=== PATIENT | female | born 1975 | race Caucasian/White ===

== ENCOUNTER 2017-09-08 05:55 | Inpatient (IN) | payer MEDICAID, OTHER ==
[~2017-09-08] VITALS: Ht 162.6 cm; Wt 58.6 kg
[~2017-09-08 05:55] MED LIST: SUBO8MIS SL; ZOFR4TAB3 SL
[2017-09-08 06:02] VITALS: BP 138/70; PULSE 74; RESP 18; TEMP 98.8; O2SAT 95
[2017-09-08] MEDS ORDERED: SODIUM CHLOR 0.9% 1000 ML INJ 1,000 ML IV SCH (06:27)
[2017-09-08] MEDS ORDERED: SODIUM CHLORIDE 0.9% FLUSH 10 ML FLUSH IV FLUSH PRN ×2 (06:30→09:30)
[2017-09-08] MEDS ORDERED: DIATRIZOATE MEGLUM/DIATRIZOATE SOD 9 ML CUP ONE (06:37)
[2017-09-08 06:40] LABS: AUTOMATED NEUTROPHIL # 11.9 TH/MM3 (1.8-7.7); BASOPHIL % 0.3 % (0.0-2.0); EOSINOPHIL % 0.3 % (0.0-4.0); HEMOGLOBIN 12.8 GM/DL (11.6-15.3); LYMPHOCYTE # 1.4 TH/MM3 (1.0-4.8); MEAN CELL VOLUME 83.9 FL (80.0-100.0); MEAN CORPUSCULAR HEMOGLOBIN 28.2 PG (27.0-34.0); MEAN CORPUSCULAR HGB CONC 33.6 % (32.0-36.0); MEAN PLATELET VOLUME 7.5 FL (7.0-11.0); MONO % 4.7 % (0.0-8.0); MONOCYTE # 0.7 TH/MM3 (0-0.9); NEUT % 84.7 % (16.0-70.0); PLATELET COUNT 354 TH/MM3 (150-450); RED BLOOD COUNT 4.53 MIL/MM3 (4.00-5.30); RED CELL DISTRIBUTION WIDTH 14.2 % (11.6-17.2)
[2017-09-08 06:44] LABS: BACTERIA, URINE RARE /hpf; BILIRUBIN, URINE NEG (NEG); BLOOD, URINE TRACE (NEG); GLUCOSE,URINE NEG (NEG); KETONE, URINE TRACE mg/dL (NEG); MUCUS URINE FEW /lpf (OCC); NITRITE,URINE NEG (NEG); PH, URINE 6.5 (5.0-8.5); SQUAMOUS EPITHELIAL CELL URINE 4 /hpf (0-5); URINE COLOR YELLOW (YELLW/STRAW); URINE LEUKOCYTE ESTERASE MOD (NEG)
[2017-09-08] MEDS ORDERED: BUPR8SUB SL (06:53)
[2017-09-08 06:59] LABS: ALT (GPT) 23 U/L (10-53); AST (GOT) 19 U/L (15-37); BICARBONATE 21.3 MEQ/L (21.0-32.0); BLOOD UREA NITROGEN 14 MG/DL (7-18); CALCIUM 9.2 MG/DL (8.5-10.1); CHLORIDE 106 MEQ/L (98-107); GLOMERULAR FILTRATION RATE 79 ML/MIN (>89); GLUCOSE,RANDOM 108 MG/DL (74-106); SODIUM (NA) 137 MEQ/L (136-145)
[2017-09-08 07:02] LABS: ALKALINE PHOSPHATASE 130 U/L (45-117); TOTAL BILIRUBIN ADULT 0.7 MG/DL (0.2-1.0); TOTAL PROTEIN 8.3 GM/DL (6.4-8.2)
--- NOTE | 2017-09-08 07:13 | PD ---
HPI Chief Complaint: Abdominal Pain Time Seen by Provider: 06:20 Travel History International Travel<30 days: No Contact w/Intl Traveler<30days: No Traveled to known affect area: No History of Present Illness HPI 42-year-old female complains of abdominal pain in the right side. She is wondering if it is a hernia or potentially a pulled muscle from doing fitness routines and exercises. She reports the pain started when she stepped off of a boat. It started somewhat suddenly. It has persisted over the night and is now constant. Patient reports pain is really only relieved when she lies down. No fever. No vomiting. No diarrhea. No urinary complaint vaginal bleeding or vaginal discharge. PFSH Past Medical History Medical History: Denies Significant Hx Diminished Hearing: No Tetanus Vaccination: < 5 Years Influenza Vaccination: No ?: Unknown LMP: 5 weeks ago, IUD out spotting now Past Surgical History Abdominal Surgery: Yes (hernia repairs with mesh) Other Surgery: Yes (BREAST AUGMENTATION) Social History Alcohol Use: No Tobacco Use: No Substance Use: No (HX OPIATE ABUSE) Allergies-Medications (Allergen,Severity, Reaction): Coded Allergies: penicillin G (Unverified Allergy, Unknown, 09/08/17) Reported Meds & Prescriptions Reported Meds & Active Scripts Active Zofran ODT (Ondansetron HCl) 4 Mg Tab 4 Mg SL Q6H PRN FOR NAUSEA/VOMITING Reported Buprenorphine (Buprenorphine HCl) 8 Mg Subl 8 Mg SL Suboxone 8 mg/2 mg 1 Tab Tab 1 Tab SL DAILY Review of Systems Except as stated in HPI: all other systems reviewed are Neg General / Constitutional: No: Fever Physical Exam Narrative GENERAL: 42-year-old female pleasant well-nourished well-developed Vital Signs Date Time Temp Pulse Resp B/P (MAP) Pulse Ox O2 Delivery O2 Flow Rate FiO2 09/08/17 06:28 Room Air 09/08/17 06:28 Room Air 09/08/17 06:02 98.8 74 18 138/70 (92) 95 SKIN: Warm and dry. HEAD: Atraumatic. Normocephalic. EYES: Pupils equal and round. No scleral icterus. No injection or drainage. ENT: No nasal bleeding or discharge. Mucous membranes pink and moist. NECK: Trachea midline. No JVD. CARDIOVASCULAR: Regular rate and rhythm. RESPIRATORY: No accessory muscle use. Clear to auscultation. Breath sounds equal bilaterally. GASTROINTESTINAL: Soft. There is tenderness in the right abdomen. There is no palpable hernia. There is no palpable abdominal wall defect. MUSCULOSKELETAL: Extremities without clubbing, cyanosis, or edema. No obvious deformities. NEUROLOGICAL: Awake and alert. No obvious cranial nerve deficits. Motor grossly within normal limits. Five out of 5 muscle strength in the arms and legs. Normal speech. PSYCHIATRIC: Appropriate mood and affect; insight and judgment normal. Data Data Last Documented VS Vital Signs Date Time Temp Pulse Resp B/P (MAP) Pulse Ox O2 Delivery O2 Flow Rate FiO2 09/08/17 06:28 Room Air 09/08/17 06:02 98.8 74 18 138/70 (92) 95 Orders Orders Complete Blood Count With Diff (09/08/17:24) Comprehensive Metabolic Panel (09/08/17:24) Urinalysis - C+S If Indicated (09/08/17:24) Ed Urine Pregnancytest Poc (09/08/17 06:24) Iv Access Insert/Monitor (09/08/17:24) Oxygen Administration (09/08/17 06:24) Oximetry (09/08/17 06:24) Lipase (09/08/17 06:24) Ct Abd/Pel W Iv Contrast(Rout) (09/08/17 06:27) NPO (09/08/17 06:27) Sodium Chlor 0.9% 1000 Ml Inj (Ns 1000 M (09/08/17 06:27) Sodium Chloride 0.9% Flush (Ns Flush) (09/08/17 06:30) Oral Contrast - Adult (09/08/17 06:35) Diatrizoate Liq ( Gastroview Liq) (09/08/17 06:37) Labs Laboratory Tests Test 09/08/17 06:30 White Blood Count 14.0 TH/MM3 Red Blood Count 4.53 MIL/MM3 Hemoglobin 12.8 GM/DL Hematocrit 38.0 % Mean Corpuscular Volume 83.9 FL Mean Corpuscular Hemoglobin 28.2 PG Mean Corpuscular Hemoglobin Concent 33.6 % Red Cell Distribution Width 14.2 % Platelet Count 354 TH/MM3 Mean Platelet Volume 7.5 FL Neutrophils (%) (Auto) 84.7 % Lymphocytes (%) (Auto) 10.0 % Monocytes (%) (Auto) 4.7 % Eosinophils (%) (Auto) 0.3 % Basophils (%) (Auto) 0.3 % Neutrophils # (Auto) 11.9 TH/MM3 Lymphocytes # (Auto) 1.4 TH/MM3 Monocytes # (Auto) 0.7 TH/MM3 Eosinophils # (Auto) 0.0 TH/MM3 Basophils # (Auto) 0.0 TH/MM3 CBC Comment DIFF FINAL Differential Comment Urine Color YELLOW Urine Turbidity CLEAR Urine pH 6.5 Urine Specific [place] 1.016 Urine Protein NEG mg/dL Urine Glucose (UA) NEG mg/dL Urine Ketones TRACE mg/dL Urine Occult Blood TRACE Urine Nitrite NEG Urine Bilirubin NEG Urine Urobilinogen LESS THAN 2.0 MG/DL Urine Leukocyte Esterase MOD Urine RBC 4 /hpf Urine WBC 8 /hpf Urine Squamous Epithelial Cells 4 /hpf Urine Bacteria RARE /hpf Urine Mucus FEW /lpf Microscopic Urinalysis Comment CULT NOT INDICATED Blood Urea Nitrogen 14 MG/DL Creatinine 0.80 MG/DL Random Glucose 108 MG/DL Total Protein 8.3 GM/DL Albumin 4.0 GM/DL Calcium Level 9.2 MG/DL Alkaline Phosphatase 130 U/L Aspartate Amino Transf (AST/SGOT) 19 U/L Alanine Aminotransferase (ALT/SGPT) 23 U/L Total Bilirubin 0.7 MG/DL Sodium Level 137 MEQ/L Potassium Level 4.0 MEQ/L Chloride Level 106 MEQ/L Carbon Dioxide Level 21.3 MEQ/L Anion Gap 10 MEQ/L Estimat Glomerular Filtration Rate 79 ML/MIN Lipase 68 U/L MDM Medical Decision Making Medical Screen Exam Complete: Yes Emergency Medical Condition: Yes Medical Record Reviewed: Yes Differential Diagnosis Constipation, Gastritis, Acute Cholecystitis, Biliary Colic, Pancreatitis, HLOLOWAY , Hepatitis, Bowel Obstruction, Cystitis, Mesenteric Ischemia, AAA, Appendicitis , Renal Stone/Hydronephrosis, GERD, perforated viscous Narrative Course CBC & BMP Diagram 09/08/17 06:30 Total Protein 8.3 H, Albumin 4.0, Calcium Level 9.2, Alkaline Phosphatase 130 H , Aspartate Amino Transf (AST/SGOT) 19, Alanine Aminotransferase (ALT/SGPT) 23, Total Bilirubin 0.7 Lipase normal Urinalysis is equivocal The patient has tenderness at McBurney's point. CT scan with IV and oral contrast ordered in order to rule it out. The case was discussed with Dr. Laguna and care was turned over to him at 7 AM. Duy Menard MD September 08, 2017 07:13
[2017-09-08 07:42] VITALS: BP 119/68; PULSE 91; RESP 18; O2SAT 99
[2017-09-08] MEDS ORDERED: IOHEXOL 350 MG/ML 10 ML VIAL (for RAD DIAG) IVCONTRAST ONE (08:30)
--- NOTE | 2017-09-08 08:58 | RADRPT ---
EXAM DATE/TIME: 09/08/2017 08:14 [facility] COMPARISON: No previous studies available for comparison. INDICATIONS : Right lower abdomen pain. IV CONTRAST: 80 cc Omnipaque 350 (iohexol) IV ORAL CONTRAST: Prescribed oral contrast ingested. RADIATION DOSE: 4.51 CTDIvol (mGy) MEDICAL HISTORY : None SURGICAL HISTORY : hernia repair ENCOUNTER: Initial ACUITY: 1 day PAIN SCALE: 8/10 LOCATION: Right lower quadrant TECHNIQUE: Volumetric scanning of the abdomen and pelvis was performed. Using automated exposure control and ad justment of the mA and/or kV according to patient size, radiation dose was kept as low as reasonably achievable to obtain optimal diagnostic quality images. DICOM format image data is available electro nically for review and comparison. FINDINGS: LOWER LUNGS: Mild bilateral dependent atelectasis. LIVER: Homogeneous density without lesion. There is no dilation of the biliary tree. No calcified gallston es. SPLEEN: Normal size without lesion. PANCREAS: Within normal limits. KIDNEYS: Normal in size and shape. There is no mass, stone or hydronephrosis. ADRENAL GLANDS: Within normal limits. VASCULAR: There is no aortic aneurysm. BOWEL/MESENTERY: There is an abnormal fluid and soft tissue collection identified adjacent to the cecum with a central punctate calcification concerning for an appendicolith. This area measures 4.6 x 5.0 x 4.5 cm. There is a large amount of formed stool identified out the colon. The small bowel is unremarkable. ABDOMINAL WALL: Within normal limits. RETROPERITONEUM: There is no lymphadenopathy. BLADDER: The bladder is extremely distended REPRODUCTIVE: Within normal limits. IUD identified the uterus. INGUINAL: There is no lymphadenopathy or hernia. MUSCULOSKELETAL: Within normal limits for patient age. CONCLUSION: Abnormal soft tissue and fluid collection identified within the right lower quadrant with a central c alcification concerning for an appendicolith within an inflammatory phlegmon/possible ruptured append icitis. Findings were relayed to Dr. Lonny Jamison MD on September 08, 2017 at 8:45 Board Certified Radiologist. This report was verified electronically.
--- NOTE | 2017-09-08 09:26 | PD ---
Physical Exam Date Seen by Provider: September 08, 2017 Time Seen by Provider: 07:00 Narrative I assume care of the patient at 7 AM at change of shift. Patient was seen initially by Dr. Menard. Please see his H&P for further details. Patient's 42-year-old female who presents with right lower quadrant abdominal pain. Patient states she felt a severe sudden burst in her right lower quadrant yesterday afternoon. Data Data Last Documented VS Vital Signs Date Time Temp Pulse Resp B/P (MAP) Pulse Ox O2 Delivery O2 Flow Rate FiO2 09/08/17 07:42 91 18 119/68 (85) 99 Room Air 09/08/17 06:02 98.8 Orders Orders Complete Blood Count With Diff (09/08/17:24) Comprehensive Metabolic Panel (09/08/17:24) Urinalysis - C+S If Indicated (09/08/17 06:24) Ed Urine Pregnancytest Poc (09/08/17 06:24) Iv Access Insert/Monitor (09/08/17 06:24) Oxygen Administration (09/08/17:24) Oximetry (09/08/17 06:24) Lipase (09/08/17 06:24) Ct Abd/Pel W Iv Contrast(Rout) (09/08/17 06:27) NPO (09/08/17 06:27) Sodium Chlor 0.9% 1000 Ml Inj (Ns 1000 M (09/08/17 06:27) Sodium Chloride 0.9% Flush (Ns Flush) (09/08/17 06:30) Oral Contrast - Adult (09/08/17 06:35) Diatrizoate Liq ( Gastroanushka Liq) (09/08/17 06:37) Iohexol 350 Inj (Omnipaque 350 Inj) (09/08/17 08:30) Metronidazole 500 Mg Inj (Flagyl 500 Mg (09/08/17 09:30) Levofloxacin 750 Mg Premix Inj (Levaquin (09/08/17 09:30) Labs Laboratory Tests Test 09/08/17 06:30 White Blood Count 14.0 TH/MM3 Red Blood Count 4.53 MIL/MM3 Hemoglobin 12.8 GM/DL Hematocrit 38.0 % Mean Corpuscular Volume 83.9 FL Mean Corpuscular Hemoglobin 28.2 PG Mean Corpuscular Hemoglobin Concent 33.6 % Red Cell Distribution Width 14.2 % Platelet Count 354 TH/MM3 Mean Platelet Volume 7.5 FL Neutrophils (%) (Auto) 84.7 % Lymphocytes (%) (Auto) 10.0 % Monocytes (%) (Auto) 4.7 % Eosinophils (%) (Auto) 0.3 % Basophils (%) (Auto) 0.3 % Neutrophils # (Auto) 11.9 TH/MM3 Lymphocytes # (Auto) 1.4 TH/MM3 Monocytes # (Auto) 0.7 TH/MM3 Eosinophils # (Auto) 0.0 TH/MM3 Basophils # (Auto) 0.0 TH/MM3 CBC Comment DIFF FINAL Differential Comment Urine Color YELLOW Urine Turbidity CLEAR Urine pH 6.5 Urine Specific [place] 1.016 Urine Protein NEG mg/dL Urine Glucose (UA) NEG mg/dL Urine Ketones TRACE mg/dL Urine Occult Blood TRACE Urine Nitrite NEG Urine Bilirubin NEG Urine Urobilinogen LESS THAN 2.0 MG/DL Urine Leukocyte Esterase MOD Urine RBC 4 /hpf Urine WBC 8 /hpf Urine Squamous Epithelial Cells 4 /hpf Urine Bacteria RARE /hpf Urine Mucus FEW /lpf Microscopic Urinalysis Comment CULT NOT INDICATED Blood Urea Nitrogen 14 MG/DL Creatinine 0.80 MG/DL Random Glucose 108 MG/DL Total Protein 8.3 GM/DL Albumin 4.0 GM/DL Calcium Level 9.2 MG/DL Alkaline Phosphatase 130 U/L Aspartate Amino Transf (AST/SGOT) 19 U/L Alanine Aminotransferase (ALT/SGPT) 23 U/L Total Bilirubin 0.7 MG/DL Sodium Level 137 MEQ/L Potassium Level 4.0 MEQ/L Chloride Level 106 MEQ/L Carbon Dioxide Level 21.3 MEQ/L Anion Gap 10 MEQ/L Estimat Glomerular Filtration Rate 79 ML/MIN Lipase 68 U/L [facility] Medical Record Reviewed: Yes Supervised Visit with DYLLAN: No Differential Diagnosis Appendicitis versus ovarian cyst versus ovarian torsion versus colitis Narrative Course 42-year-old female presents with right lower quadrant pain. Patient has a ruptured appendicitis on CT scan. Dr. Fahad Yancey, on-call surgeon, was made aware of the patient's presentation. He will arrange take the patient to the operating room. Patient's been started on Flagyl 500 mg 1 dose and Levaquin 750 mg 1 dose. She will be started on maintenance fluids. The patient was concerned that she may be receiving pain medication. The patient has a history of opiate dependence and has been on Subutex for over one year. I informed her that I would let the surgeon know of her concern. We will try to accommodate treating her pain in a in appropriate way. Diagnosis Primary Impression: Ruptured appendicitis Additional Impression: History of opiate dependence Admitting Information Admitting Physician Requests: Admit Colby Laguna MD September 08, 2017 09:26
[2017-09-08] MEDS ORDERED: metroNIDAZOLE 500 MG INJ 100 ML IV ONE (09:30)
[2017-09-08] MEDS ORDERED: LEVOFLOXACIN 750 MG PREMIX INJ 150 ML IV SCH (09:30)
[2017-09-08] MEDS ORDERED: D5-1/2 NS + KCL 20 MEQ INJ 1,000 ML IV SCH (09:30)
[2017-09-08] MEDS: LEVOFLOXACIN 500 MG PREMIX INJ 100 ML IV SCH (10:12)
[2017-09-08] MEDS: ACETAMINOPHEN 1000 MG/100 ML 100 ML IV SCH ×3 (10:15→22:07)
[2017-09-08] MEDS: SODIUM CHLOR 0.9% 1000 ML INJ 1,000 ML IV SCH ×2 (10:52→18:05)
[2017-09-08] MEDS: metroNIDAZOLE 500 MG INJ 100 ML IV SCH ×3 (10:53→22:30)
[2017-09-08 10:56] VITALS: BP 124/60; PULSE 85; RESP 17; TEMP 99.2; O2SAT 98
[2017-09-08 12:45] VITALS: BP 120/59; PULSE 64; RESP 20; TEMP 99.1; O2SAT 99
--- NOTE | 2017-09-08 13:34 | HHI.HP ---
HPI Service General Surgery Primary Care Physician Unknown Admission Diagnosis Appendicitis Chief Complaint: Abdominal pain History of Present Illness 42 yo healthy female presents with 6 days of right lower abdominal pain. Initially she thought that this was a muscle strain or a hernia as she is an avid athlete. The pain worsened and she presented to the emergency department early this morning. She was noted to have right lower quadrant tenderness and leukocytosis. CT of the abdomen and pelvis showed appendicitis with a small appendicolith and surrounding phlegmon. She denies nausea or vomiting although she does not have a large p.o. intake. No fevers. She has some pain when she urinates. Past surgical history includes umbilical hernia repair with mesh and inguinal hernia repair with mesh. Review of Systems Constitutional: DENIES: Fever, Chills Eyes: DENIES: Eye inflammation, Eye pain Ears, nose, mouth, throat: DENIES: Oral lesions, Throat pain Respiratory: DENIES: Cough, Shortness of breath Cardiovascular: DENIES: Chest pain, Palpitations Gastrointestinal: COMPLAINS OF: Abdominal pain, DENIES: Nausea, Vomiting Integumentary: DENIES: Pruritus, Rash Neurologic: DENIES: Paresthesias, Seizures Past Family Social History Past Medical History Opiate abuse in the past Past Surgical History Umbilical hernia repair with mesh Inguinal hernia repair with mesh Reported Medications Reported Meds & Active Scripts Active Reported Buprenorphine (Buprenorphine HCl) 8 Mg Subl 8 Mg SL Suboxone Allergies: Coded Allergies: penicillin G (Unverified Allergy, Unknown, 09/08/17) Active Ordered Medications Current Medications Medications (Trade) Dose Ordered Sig/Marilee Route Start Time Stop Time Status Last Admin Sodium Chloride 1,000 ml @ 125 mls/hr Q8H IV 09/08/17 09:23 09/08/17 10:52 (NS Flush) 2 ml UNSCH PRN IV FLUSH 09/08/17 09:30 (NS Flush) 2 ml BID IV FLUSH 09/08/17 21:00 Levofloxacin/ Dextrose 100 ml @ 100 mls/hr Q24H IV 09/08/17 10:00 09/08/17 10:12 Metronidazole 100 ml @ 100 mls/hr Q6H IV 09/08/17 11:00 09/08/17 10:53 (Zofran Odt) 4 mg Q6H PRN PO 09/08/17 09:30 (Toradol Inj) 30 mg Q6H PRN IV PUSH 09/08/17 09:30 09/13/17 09:29 Acetaminophen 100 ml @ 400 mls/hr Q6H IV 09/08/17 10:00 09/08/17 10:15 Family History Noncontributory Social History No alcohol or tobacco use. Her and daughters are with her. Physical Exam Vital Signs Vital Signs Date Time Temp Pulse Resp B/P (MAP) Pulse Ox O2 Delivery O2 Flow Rate FiO2 09/08/17 12:45 99.1 64 20 120/59 (79) 99 09/08/17 12:19 09/08/17 10:56 99.2 85 17 124/60 (81) 98 Room Air 09/08/17 07:42 91 18 119/68 (85) 99 Room Air 09/08/17 06:28 Room Air 09/08/17 06:28 Room Air 09/08/17 06:02 98.8 74 18 138/70 (92) 95 Physical Exam GENERAL: Awake and alert. No acute distress. Cooperative. HEAD: Normocephalic. Atraumatic. EYES: Pupils equal round and reactive to light bilaterally. No scleral icterus. ENT: Moist oral mucosa. NECK: Trachea midline. CHEST: Nonlabored breathing. No respiratory distress. CARDIOVASCULAR: Regular rate and rhythm. ABDOMEN: Soft, nondistended. Positive rebound focally in the right lower abdomen with moderate tenderness to palpation. Otherwise nontender. EXTREMITIES: No cyanosis or edema. SKIN: Warm, dry, nonjaundiced. Laboratory Laboratory Tests Test 09/08/17 06:30 White Blood Count 14.0 Red Blood Count 4.53 Hemoglobin 12.8 Hematocrit 38.0 Mean Corpuscular Volume 83.9 Mean Corpuscular Hemoglobin 28.2 Mean Corpuscular Hemoglobin Concent 33.6 Red Cell Distribution Width 14.2 Platelet Count 354 Mean Platelet Volume 7.5 Neutrophils (%) (Auto) 84.7 Lymphocytes (%) (Auto) 10.0 Monocytes (%) (Auto) 4.7 Eosinophils (%) (Auto) 0.3 Basophils (%) (Auto) 0.3 Neutrophils # (Auto) 11.9 Lymphocytes # (Auto) 1.4 Monocytes # (Auto) 0.7 Eosinophils # (Auto) 0.0 Basophils # (Auto) 0.0 CBC Comment DIFF FINAL Differential Comment Urine Color YELLOW Urine Turbidity CLEAR Urine pH 6.5 Urine Specific [place] 1.016 Urine Protein NEG Urine Glucose (UA) NEG Urine Ketones TRACE Urine Occult Blood TRACE Urine Nitrite NEG Urine Bilirubin NEG Urine Urobilinogen LESS THAN 2.0 Urine Leukocyte Esterase MOD Urine RBC 4 Urine WBC 8 Urine Squamous Epithelial Cells 4 Urine Bacteria RARE Urine Mucus FEW Microscopic Urinalysis Comment CULT NOT INDICATED Blood Urea Nitrogen 14 Creatinine 0.80 Random Glucose 108 Total Protein 8.3 Albumin 4.0 Calcium Level 9.2 Alkaline Phosphatase 130 Aspartate Amino Transf (AST/SGOT) 19 Alanine Aminotransferase (ALT/SGPT) 23 Total Bilirubin 0.7 Sodium Level 137 Potassium Level 4.0 Chloride Level 106 Carbon Dioxide Level 21.3 Anion Gap 10 Estimat Glomerular Filtration Rate 79 Lipase 68 Result Diagram: 09/08/1730 09/08/17629 Imaging Last Impressions Abdomen/Pelvis CT 09/08/17626 Signed Impressions: Service Date/Time: Friday, September 08, 2017 08:14 - CONCLUSION: Abnormal soft tissue and fluid collection identified within the right lower quadrant with a central calcification concerning for an appendicolith within an inflammatory phlegmon/possible ruptured appendicitis. Findings were relayed to MD Ivan Pate VTE Risk Assessment Ivan VTE Risk Assessment: No/Low Risk (score <= 1) Caprini Risk Assessment Model Point Value = 1 Point Value = 2 Point Value = 3 Point Value = 5 Age 41-60 Minor surgery BMI > 25 kg/m2 Swollen legs Varicose veins or History of unexplained or recurrent spontaneous Oral contraceptives or hormone replacement Sepsis (< 1 month) Serious lung disease, including pneumonia (< 1 month) Abnormal pulmonary function Acute myocardial infarction Congestive heart failure (< 1 month) History of inflammatory bowel disease Medical patient at bed rest Age 61-74 Arthroscopic surgery Major open surgery (> 45 min) Laparoscopic surgery (> 45 min) Malignancy Confined to bed (> 72 hours) Immobilizing plaster cast Central venous access Age >= 75 History of VTE Family history of VTE Factor V Leiden Prothrombin [id number] Lupus anticoagulant Anticardiolipin antibodies Elevated serum homocysteine Heparin-induced thrombocytopenia Other congenital or acquired thrombophilia Stroke (< 1 month) Elective arthroplasty Hip, pelvis, or leg fracture Acute spinal cord injury (< 1 month) Prophylaxis Regimen Total Risk Factor Score Risk Level Prophylaxis Regimen 0-1 Low Early ambulation 2 Moderate Order ONE of the following: *Sequential Compression Device (SCD) *Heparin 5000 units SQ BID 3-4 Higher Order ONE of the following medications: *Heparin 5000 units SQ TID *Enoxaparin/Lovenox 40 mg SQ daily (WT < 150 kg, CrCl > 30 mL/min) *Enoxaparin/Lovenox 30 mg SQ daily (WT < 150 kg, CrCl > 10-29 mL/min) *Enoxaparin/Lovenox 30 mg SQ BID (WT < 150 kg, CrCl > 30 mL/min) AND/OR *Sequential Compression Device (SCD) 5 or more Highest Order ONE of the following medications: *Heparin 5000 units SQ TID (Preferred with Epidurals) *Enoxaparin/Lovenox 40 mg SQ daily (WT < 150 kg, CrCl > 30 mL/min) *Enoxaparin/Lovenox 30 mg SQ daily (WT < 150 kg, CrCl > 10-29 mL/min) *Enoxaparin/Lovenox 30 mg SQ BID (WT < 150 kg, CrCl > 30 mL/min) AND *Sequential Compression Device (SCD) Assessment and Plan Assessment and Plan 42-year-old female with appendicitis with surrounding phlegmon associated with at least focal perforation. I think she will be best treated attempting a nonoperative approach with IV antibiotics. As long as she would continue to improve I would anticipate discharge home in 2-3 days with continuation of oral antibiotics as an outpatient. Would then consider interval appendectomy in 6-8 weeks. I discussed this all with the patient and her and she understands and desires to proceed with this course of treatment. Fahad Yancey MD September 08, 2017 13:33
[2017-09-08 16:00] VITALS: BP 117/73; PULSE 63; RESP 17; TEMP 99.1; O2SAT 99
[2017-09-08] MEDS: KETOROLAC TROMETHAMINE 30 MG/ML (IVP) VIAL IV PUSH PRN (19:48)
[2017-09-08 20:00] VITALS: BP 100/59; PULSE 50; RESP 16; TEMP 97.4; O2SAT 96
[2017-09-08] MEDS: SODIUM CHLORIDE 0.9% FLUSH 10 ML FLUSH IV FLUSH SCH (21:00)
[2017-09-08] MEDS: ONDANSETRON ODT 4 MG TAB PO PRN (23:53)
[2017-09-08] MEDS: MORPHINE SULFATE 4 MG/ML INJ IV PRN (23:54)
[2017-09-09 00:31] VITALS: BP 94/53; PULSE 64; RESP 16; TEMP 97.9; O2SAT 96
[2017-09-09] MEDS: SODIUM CHLOR 0.9% 1000 ML INJ 1,000 ML IV SCH ×3 (01:23→16:13)
[2017-09-09 04:00] VITALS: BP 99/53; PULSE 67; RESP 16; TEMP 101.9; O2SAT 93
[2017-09-09] MEDS: ACETAMINOPHEN 1000 MG/100 ML 100 ML IV SCH ×4 (04:41→20:31)
[2017-09-09] MEDS: metroNIDAZOLE 500 MG INJ 100 ML IV SCH ×4 (05:05→23:58)
[2017-09-09 07:07] LABS: AUTOMATED NEUTROPHIL # 13.6 TH/MM3 (1.8-7.7); HEMATOCRIT 31.6 % (35.0-46.0); HEMOGLOBIN 10.7 GM/DL (11.6-15.3); LYMPH % 3.6 % (9.0-44.0); LYMPHOCYTE # 0.5 TH/MM3 (1.0-4.8); MEAN CELL VOLUME 84.9 FL (80.0-100.0); MEAN CORPUSCULAR HEMOGLOBIN 28.6 PG (27.0-34.0); MEAN CORPUSCULAR HGB CONC 33.7 % (32.0-36.0); MEAN PLATELET VOLUME 7.4 FL (7.0-11.0); MONO % 3.6 % (0.0-8.0); MONOCYTE # 0.5 TH/MM3 (0-0.9); NEUT % 92.8 % (16.0-70.0); PLATELET COUNT 264 TH/MM3 (150-450); RED BLOOD COUNT 3.72 MIL/MM3 (4.00-5.30); RED CELL DISTRIBUTION WIDTH 14.2 % (11.6-17.2); WHITE BLOOD COUNT 14.7 TH/MM3 (4.0-11.0)
[2017-09-09 08:00] VITALS: BP 95/50; PULSE 75; RESP 16; TEMP 100.2; O2SAT 96
--- NOTE | 2017-09-09 08:39 | HHI.PR ---
Subjective Subjective Notes More painful overnight. Fever this am. WBC slightly increased. Objective Vitals/I&O Vital Signs Date Time Temp Pulse Resp B/P (MAP) Pulse Ox O2 Delivery O2 Flow Rate FiO2 09/09/17 04:00 101.9 67 16 99/53 (68) 93 09/08/17 10:56 Room Air Labs Laboratory Tests Test 09/09/17 06:26 White Blood Count 14.7 Red Blood Count 3.72 Hemoglobin 10.7 Hematocrit 31.6 Mean Corpuscular Volume 84.9 Mean Corpuscular Hemoglobin 28.6 Mean Corpuscular Hemoglobin Concent 33.7 Red Cell Distribution Width 14.2 Platelet Count 264 Mean Platelet Volume 7.4 Neutrophils (%) (Auto) 92.8 Lymphocytes (%) (Auto) 3.6 Monocytes (%) (Auto) 3.6 Eosinophils (%) (Auto) 0.0 Basophils (%) (Auto) 0.0 Neutrophils # (Auto) 13.6 Lymphocytes # (Auto) 0.5 Monocytes # (Auto) 0.5 Eosinophils # (Auto) 0.0 Basophils # (Auto) 0.0 CBC Comment DIFF FINAL Differential Comment Radiology Last Impressions Abdomen/Pelvis CT 09/08/17 0627 Signed Impressions: Service Date/Time: Friday, September 08, 2017 08:14 - CONCLUSION: Abnormal soft tissue and fluid collection identified within the right lower quadrant with a central calcification concerning for an appendicolith within an inflammatory phlegmon/possible ruptured appendicitis. Findings were relayed to Dr. Lonny Jamison MD Narrative Exam Abd: tender now LLQ, severe ttp RLQ A/P Assessment and Plan 42 yo F with acute appendicitis with associated phlegmon. Worsened overnight, and I recommend proceed to OR for lap appendectomy. Discussed rationale in detail with her as well as surgery. She desires to proceed as recommended. BcFahad dominguez MD September 09, 2017 08:39
[2017-09-09] MEDS ORDERED: LACTATED RINGER'S 1000 ML IV PRN (09:00)
[2017-09-09] MEDS ORDERED: CHLORHEXIDINE GLUCONATE 2 % 1 PACK (2 CLOTHS) TOPICAL PRN (09:00)
[2017-09-09] MEDS ORDERED: SODIUM CHLORID 0.9% 500 ML IV PRN (09:00)
[2017-09-09] MEDS ORDERED: METOPROLOL TARTRATE 25 MG TAB PO PRN (09:00)
[2017-09-09] MEDS ORDERED: POVIDONE IODINE 5% (ANTISEPSIS KIT) 4 APPLICATIONS EACH NARE PRN (09:00)
[2017-09-09] MEDS: SODIUM CHLORIDE 0.9% FLUSH 10 ML FLUSH IV FLUSH SCH ×2 (09:34→20:32)
[2017-09-09] MEDS: KETOROLAC TROMETHAMINE 30 MG/ML (IVP) VIAL IV PUSH PRN ×3 (09:36→20:31)
[2017-09-09] MEDS: LEVOFLOXACIN 500 MG PREMIX INJ 100 ML IV SCH ×3 (10:00→12:24)
[2017-09-09] MEDS ORDERED: HYDROmorphone HCL PF 2 MG/ML VIAL ONE (10:49)
[2017-09-09] MEDS ORDERED: BUPIVACAINE/EPINEPHRINE 0.25% 50 ML VIAL ONE (10:49)
[2017-09-09] MEDS ORDERED: KETAMINE HCL 500 MG/10 ML VIAL ONE (10:49)
[2017-09-09] MEDS ORDERED: ePHEDrine/NS 25 MG/5 ML SYRINGE IV ONE (12:00)
[2017-09-09] MEDS ORDERED: ROCURONIUM INJ 50 MG/5 ML SYRINGE IV PUSH ONE (12:00)
[2017-09-09] MEDS ORDERED: NEOSTIGMINE 5 MG/5 ML SYRINGE IV PUSH ONE (12:00)
[2017-09-09] MEDS ORDERED: GLYCOPYRROLATE 1 MG/5 ML SYRINGE IV PUSH ONE (12:00)
[2017-09-09] MEDS ORDERED: PROPOFOL 200 MG/20 ML AMP IV ONE (12:00)
[2017-09-09] MEDS ORDERED: LIDOCAINE HCL 1% PF 5 ML SYRINGE OTHER ONE (12:00)
[2017-09-09] MEDS ORDERED: DEXAMETHASONE SOD PHOS 4 MG/ML VIAL IV ONE (12:00)
[2017-09-09] MEDS ORDERED: ONDANSETRON HCL 4 MG/2 ML VIAL IV ONE (12:00)
--- NOTE | 2017-09-09 13:09 | PD.OP ---
cc: Fahad Yancey MD Operative Report Date of Surgery: September 09, 2017 Preoperative Diagnosis: (1) Ruptured appendicitis Postoperative Diagnosis: (1) Ruptured appendicitis Procedure: Laparoscopic appendectomy Anesthesia: Surgeon: Fahad Yancey Paint Stripper(s): Wade Operation and Findings: EBL: 5 cc Complications: None apparent Operative findings: The patient had perforated appendicitis with generalized peritonitis gross purulent fluid within the abdomen. Procedure in detail: The patient was taken to the operating room placed in the supine position with left arm tucked. General endotracheal anesthesia was induced and the abdomen was prepped and draped in usual sterile fashion. Surgical timeout was performed to verify correct patient procedure and site. Perioperative antibiotics were administered as necessary. Local anesthetic was injected in the skin and subcutaneous tissue in the left lower abdomen and a 5 mm incision made. Using the 5 mm Optiview trocar with laparoscope the abdomen was directly entered. The abdomen was then insufflated to 15 mmHg with CO2 gas which the patient tolerated well. The patient was then placed in Trendelenburg position and turned slightly to the left. A 12 mm port was placed under laparoscopic visualization in the suprapubic area and another 5 mm port near the umbilicus. Attention was turned to the right lower quadrant. The appendix was distended and inflamed with evidence of perforation. There was purulent fluid throughout the abdomen mainly in the pelvis and the right lower quadrant. Careful blunt dissection using the suction ledger poster was used to delineate the appendix and separate from surrounding structures.. The mesoappendix was taken down with the Harmonic scalpel. Two #1 PDS Endoloops were placed at the base the appendix and the appendix transected with Harmonic scalpel. It was then removed using an Endo Catch bag. The appendiceal stump was intact with no leakage. Purulent fluid was suctioned from the abdominal cavity. The entire abdomen was copiously irrigated. A 19 [place] round Oscar drain was placed through the left abdominal 5 mm port site along the right paracolic gutter and into the pelvis and secured with 3-0 nylon suture. The abdomen was allowed to desufflate. The fascia at the 12 mm port site was closed with a [id number] 0 Vicryl suture. Skin closed with subcuticular Monocryl as well as Dermabond. The patient tolerated the procedure well was extubated and taken to PACU in stable condition. Fahad Yancey MD September 09, 2017 13:09
[2017-09-09] MEDS ORDERED: MIDAZOLAM HCL 2 MG/2 ML VIAL ONE (13:22)
[2017-09-09] MEDS ORDERED: *morphine SULFATE 4 MG/ML PERIprocedure ONLY ONE ×2 (13:26→13:53)
[2017-09-09] MEDS ORDERED: *ONDANSETRON 4 MG VIAL PERIprocedural Use ONLY ONE (13:42)
[2017-09-09] MEDS ORDERED: DO NOT ADM ANY ANTICOAGULANT DRUGS PRN (14:00)
[2017-09-09] MEDS ORDERED: BENZOCAINE 6 MG/MENTHOL 10 MG LOZENGE BUCCAL PRN (14:00)
[2017-09-09 16:00] VITALS: BP 103/58; PULSE 60; RESP 16; TEMP 97.7; O2SAT 95
[2017-09-09] MEDS: ONDANSETRON ODT 4 MG TAB PO PRN (16:10)
[2017-09-09] MEDS: MORPHINE SULFATE 4 MG/ML INJ IV PRN ×3 (18:46→23:54)
[2017-09-09 20:00] VITALS: BP 111/63; PULSE 59; RESP 16; TEMP 98.4; O2SAT 98
[2017-09-10] VITALS: BP 136/62; PULSE 56; RESP 16; TEMP 97.8; O2SAT 98
[2017-09-10] MEDS: SODIUM CHLOR 0.9% 1000 ML INJ 1,000 ML IV SCH ×4 (01:23→21:42)
[2017-09-10] MEDS: MORPHINE SULFATE 4 MG/ML INJ IV PRN ×8 (02:09→21:39)
[2017-09-10 04:00] VITALS: BP 130/74; PULSE 61; RESP 18; TEMP 98.3; O2SAT 96
[2017-09-10] MEDS: KETOROLAC TROMETHAMINE 30 MG/ML (IVP) VIAL IV PUSH PRN ×2 (04:21→10:59)
[2017-09-10] MEDS: metroNIDAZOLE 500 MG INJ 100 ML IV SCH ×4 (04:21→21:40)
[2017-09-10] MEDS: ACETAMINOPHEN 1000 MG/100 ML 100 ML IV SCH ×2 (04:21→10:00)
[2017-09-10 06:41] LABS: AUTOMATED NEUTROPHIL # 14.6 TH/MM3 (1.8-7.7); BASOPHIL % 0.2 % (0.0-2.0); EOSINOPHIL % 0.1 % (0.0-4.0); HEMOGLOBIN 10.5 GM/DL (11.6-15.3); LYMPHOCYTE # 0.8 TH/MM3 (1.0-4.8); MEAN CELL VOLUME 84.7 FL (80.0-100.0); MEAN CORPUSCULAR HEMOGLOBIN 28.6 PG (27.0-34.0); MEAN CORPUSCULAR HGB CONC 33.8 % (32.0-36.0); MEAN PLATELET VOLUME 8.4 FL (7.0-11.0); MONO % 4.5 % (0.0-8.0); MONOCYTE # 0.7 TH/MM3 (0-0.9); NEUT % 90.2 % (16.0-70.0); PLATELET COUNT 302 TH/MM3 (150-450); RED BLOOD COUNT 3.66 MIL/MM3 (4.00-5.30); RED CELL DISTRIBUTION WIDTH 14.5 % (11.6-17.2); WHITE BLOOD COUNT 16.2 TH/MM3 (4.0-11.0)
[2017-09-10] MEDS: SODIUM CHLORIDE 0.9% FLUSH 10 ML FLUSH IV FLUSH SCH ×2 (07:42→19:57)
[2017-09-10] MEDS: LEVOFLOXACIN 500 MG PREMIX INJ 100 ML IV SCH (07:42)
[2017-09-10] MEDS: ONDANSETRON ODT 4 MG TAB PO PRN ×3 (07:48→14:18)
[2017-09-10 08:00] VITALS: BP 125/72; PULSE 51; RESP 17; TEMP 98; O2SAT 95
--- NOTE | 2017-09-10 11:13 | HHI.PR ---
Subjective Subjective Notes Miserable secondary to NGT. C/o "gagging". She wants NGT out even if this causes more severe nausea. Pain pretty well controlled. Objective Vitals/I&O Vital Signs Date Time Temp Pulse Resp B/P (MAP) Pulse Ox O2 Delivery O2 Flow Rate FiO2 09/10/17 08:00 98.0 51 17 125/72 (89) 95 09/09/17 13:45 Nasal Cannula 2 Labs Laboratory Tests Test 09/10/17 05:55 White Blood Count 16.2 Red Blood Count 3.66 Hemoglobin 10.5 Hematocrit 31.0 Mean Corpuscular Volume 84.7 Mean Corpuscular Hemoglobin 28.6 Mean Corpuscular Hemoglobin Concent 33.8 Red Cell Distribution Width 14.5 Platelet Count 302 Mean Platelet Volume 8.4 Neutrophils (%) (Auto) 90.2 Lymphocytes (%) (Auto) 5.0 Monocytes (%) (Auto) 4.5 Eosinophils (%) (Auto) 0.1 Basophils (%) (Auto) 0.2 Neutrophils # (Auto) 14.6 Lymphocytes # (Auto) 0.8 Monocytes # (Auto) 0.7 Eosinophils # (Auto) 0.0 Basophils # (Auto) 0.0 CBC Comment DIFF FINAL Differential Comment Radiology Last Impressions Abdomen/Pelvis CT 09/08/17 0627 Signed Impressions: Service Date/Time: Friday, September 08, 2017 08:14 - CONCLUSION: Abnormal soft tissue and fluid collection identified within the right lower quadrant with a central calcification concerning for an appendicolith within an inflammatory phlegmon/possible ruptured appendicitis. Findings were relayed to Dr. Lonny SKAGGS POD C. Kia Jamison MD Narrative Exam Uncomfortable NG not functioning properly Abd: moderate distention, post op ttp, AMA ss output A/P Assessment and Plan 42 yo F with acute appendicitis perforated now POD 1 s/p lap appy and washout. Post op ileus. She is miserable with NG and wants it out. D/c NGT. Reglan/zofran. Sips of clears. Try PO pain meds. Cont IV antibiotics. On subutex as outpatient will need to be restarted prior to discharge. Fahad Yancey MD September 10, 2017 11:13
[2017-09-10] MEDS ORDERED: METOCLOPRAMIDE HCL 10 MG/2 ML VIAL IV PUSH PRN (11:15)
[2017-09-10] MEDS ORDERED: ACETAMINOPHEN/HYDROcodone 325 MG/5 MG TAB PO PRN (11:15)
[2017-09-10 12:00] VITALS: BP 114/73; PULSE 61; RESP 17; TEMP 97.7; O2SAT 94
[2017-09-10] MEDS: ACETAMINOPHEN/HYDROcodone 325 MG/5 MG TAB PO PRN ×2 (14:18→19:56)
[2017-09-10 16:00] VITALS: BP 118/71; PULSE 59; RESP 17; TEMP 97.9; O2SAT 96
[2017-09-10] MEDS: KETOROLAC TROMETHAMINE 30 MG/ML (IVP) VIAL IV PUSH SCH ×2 (17:06→21:48)
[2017-09-10 20:00] VITALS: BP 113/57; PULSE 70; RESP 21; TEMP 98.2; O2SAT 93
[2017-09-11] VITALS: BP 101/64; PULSE 66; RESP 21; TEMP 98.3; O2SAT 98
[2017-09-11] MEDS: ACETAMINOPHEN/HYDROcodone 325 MG/5 MG TAB PO PRN ×3 (00:49→10:26)
[2017-09-11] MEDS: MORPHINE SULFATE 4 MG/ML INJ IV PRN ×8 (02:34→22:53)
[2017-09-11] MEDS: KETOROLAC TROMETHAMINE 30 MG/ML (IVP) VIAL IV PUSH SCH ×4 (05:27→20:29)
[2017-09-11] MEDS: metroNIDAZOLE 500 MG INJ 100 ML IV SCH ×4 (05:27→20:30)
[2017-09-11 08:00] VITALS: BP 110/55; PULSE 65; RESP 17; TEMP 98.4; O2SAT 96
--- NOTE | 2017-09-11 08:43 | HHI.PR ---
Subjective Subjective Notes No nausea and passing flatus but still quite distended. Objective Vitals/I&O Vital Signs Date Time Temp Pulse Resp B/P (MAP) Pulse Ox O2 Delivery O2 Flow Rate FiO2 09/11/17 07:31 18 09/11/17 00:00 98.3 66 101/64 (76) 98 09/09/17 13:45 Nasal Cannula 2 Radiology Last Impressions Abdomen/Pelvis CT 09/08/17 0627 Signed Impressions: Service Date/Time: Friday, September 08, 2017 08:14 - CONCLUSION: Abnormal soft tissue and fluid collection identified within the right lower quadrant with a central calcification concerning for an appendicolith within an inflammatory phlegmon/possible ruptured appendicitis. Findings were relayed to Dr. Mukherjee ER POD C. Kia Jamison MD Narrative Exam NAD Abd: moderate distention, post op ttp, AMA ss cloudy output A/P Assessment and Plan 42 yo F with acute appendicitis perforated now POD 2 s/p lap appy and washout. Post op ileus. Continue clears. Await return of bowel function. Cont IV antibiotics. Fahad Yancey MD September 11, 2017 08:43
[2017-09-11] MEDS ORDERED: METR1TAB76 PO (08:44)
[2017-09-11] MEDS ORDERED: LEVO750T3 PO (08:44)
[2017-09-11] MEDS: LEVOFLOXACIN 500 MG PREMIX INJ 100 ML IV SCH (09:06)
[2017-09-11] MEDS: SODIUM CHLORIDE 0.9% FLUSH 10 ML FLUSH IV FLUSH SCH ×2 (09:06→20:30)
[2017-09-11 09:59] VITALS: O2SAT 97
[2017-09-11] MEDS: ONDANSETRON ODT 4 MG TAB PO PRN (11:38)
[2017-09-11] MEDS: SODIUM CHLOR 0.9% 1000 ML INJ 1,000 ML IV SCH ×2 (11:40→16:29)
[2017-09-11 12:00] VITALS: BP 111/73; PULSE 59; RESP 17; TEMP 99; O2SAT 94
[2017-09-11 16:00] VITALS: BP 122/72; PULSE 64; RESP 17; TEMP 98.4; O2SAT 96
[2017-09-11 20:00] VITALS: BP 115/66; PULSE 70; RESP 16; TEMP 99.5; O2SAT 95
[2017-09-12 00:27] VITALS: BP 108/67; PULSE 63; RESP 16; TEMP 98.9; O2SAT 96
[2017-09-12] MEDS: SODIUM CHLOR 0.9% 1000 ML INJ 1,000 ML IV SCH ×3 (01:23→17:23)
[2017-09-12] MEDS: MORPHINE SULFATE 4 MG/ML INJ IV PRN ×6 (01:44→23:04)
[2017-09-12] MEDS: KETOROLAC TROMETHAMINE 30 MG/ML (IVP) VIAL IV PUSH SCH ×4 (03:30→20:27)
[2017-09-12] MEDS: ACETAMINOPHEN/HYDROcodone 325 MG/5 MG TAB PO PRN ×4 (04:50→20:28)
[2017-09-12] MEDS: metroNIDAZOLE 500 MG INJ 100 ML IV SCH ×4 (04:51→23:04)
[2017-09-12 08:00] VITALS: BP 136/80; PULSE 66; RESP 16; TEMP 98.4; O2SAT 94
[2017-09-12 08:49] LABS: AUTOMATED NEUTROPHIL # 4.3 TH/MM3 (1.8-7.7); BASOPHIL % 0.7 % (0.0-2.0); EOSINOPHIL # 0.1 TH/MM3 (0-0.4); EOSINOPHIL % 2.3 % (0.0-4.0); HEMATOCRIT 31.4 % (35.0-46.0); HEMOGLOBIN 10.5 GM/DL (11.6-15.3); LYMPH % 14.7 % (9.0-44.0); LYMPHOCYTE # 0.8 TH/MM3 (1.0-4.8); MEAN CELL VOLUME 83.8 FL (80.0-100.0); MEAN CORPUSCULAR HGB CONC 33.4 % (32.0-36.0); MEAN PLATELET VOLUME 8.5 FL (7.0-11.0); MONO % 7.5 % (0.0-8.0); MONOCYTE # 0.4 TH/MM3 (0-0.9); NEUT % 74.8 % (16.0-70.0); PLATELET COUNT 269 TH/MM3 (150-450); RED BLOOD COUNT 3.75 MIL/MM3 (4.00-5.30); RED CELL DISTRIBUTION WIDTH 14.1 % (11.6-17.2); WHITE BLOOD COUNT 5.7 TH/MM3 (4.0-11.0)
[2017-09-12] MEDS: LEVOFLOXACIN 500 MG PREMIX INJ 100 ML IV SCH (09:41)
[2017-09-12] MEDS: SODIUM CHLORIDE 0.9% FLUSH 10 ML FLUSH IV FLUSH SCH ×2 (09:41→21:00)
[2017-09-12 12:00] VITALS: BP 127/73; PULSE 94; RESP 16; TEMP 97.9; O2SAT 92
[2017-09-12 16:00] VITALS: BP 127/69; PULSE 50; RESP 16; TEMP 98.2; O2SAT 98
[2017-09-12 20:00] VITALS: BP 136/63; PULSE 50; RESP 20; TEMP 98.4; O2SAT 99
[2017-09-13 00:36] VITALS: BP 112/68; PULSE 54; RESP 16; TEMP 97.9; O2SAT 97
[2017-09-13] MEDS: SODIUM CHLOR 0.9% 1000 ML INJ 1,000 ML IV SCH ×4 (02:04→23:01)
[2017-09-13] MEDS: ACETAMINOPHEN/HYDROcodone 325 MG/5 MG TAB PO PRN ×5 (02:13→21:36)
[2017-09-13] MEDS: KETOROLAC TROMETHAMINE 30 MG/ML (IVP) VIAL IV PUSH SCH (03:27)
[2017-09-13] MEDS: metroNIDAZOLE 500 MG INJ 100 ML IV SCH ×4 (05:09→23:01)
[2017-09-13] MEDS: MORPHINE SULFATE 4 MG/ML INJ IV PRN ×2 (05:32→10:39)
[2017-09-13] MEDS: SODIUM CHLORIDE 0.9% FLUSH 10 ML FLUSH IV FLUSH SCH ×2 (07:49→20:06)
[2017-09-13] MEDS: LEVOFLOXACIN 500 MG PREMIX INJ 100 ML IV SCH (07:50)
[2017-09-13 08:00] VITALS: BP 123/73; PULSE 52; RESP 17; TEMP 98.3; O2SAT 94
[2017-09-13] MEDS ORDERED: MAGNESIUM HYDROXIDE SUSP 30 ML CUP PO ONE (10:15)
[2017-09-13] MEDS: DOCUSATE SODIUM 100 MG CAP PO SCH ×2 (10:33→20:06)
--- NOTE | 2017-09-13 11:48 | HHI.PR ---
Subjective Subjective Notes belly pain improved tolerating clears Objective Vitals/I&O Vital Signs Date Time Temp Pulse Resp B/P (MAP) Pulse Ox O2 Delivery O2 Flow Rate FiO2 09/13/17 08:00 98.3 52 17 123/73 (90) 94 09/12/17 18:34 21 09/09/17 13:45 Nasal Cannula 2 Radiology Last Impressions Abdomen/Pelvis CT 09/08/17 0627 Signed Impressions: Service Date/Time: Friday, September 08, 2017 08:14 - CONCLUSION: Abnormal soft tissue and fluid collection identified within the right lower quadrant with a central calcification concerning for an appendicolith within an inflammatory phlegmon/possible ruptured appendicitis. Findings were relayed to Dr. Lonny Jamison MD Abdomen: Post-op tenderness Extremities: Perfused Wound Wound : Wound Location: Abdomen (AMA with serous drainage ) Appearance: Clean & Dry A/P Assessment and Plan 42yo s/p laparoscopic appendectomy -Increase diet to full liquids -add MoM for bowel regimen -will most likely d/c home tomorrow This patient was seen by Dr. Morillo and this note was dictated on his behalf Jacob San September 13, 2017 11:48
[2017-09-13 12:00] VITALS: BP 113/54; PULSE 62; RESP 19; TEMP 98.5; O2SAT 92
[2017-09-13 15:36] VITALS: BP 123/70; PULSE 46; RESP 12; TEMP 97.8; O2SAT 100
[2017-09-13] MEDS: ONDANSETRON ODT 4 MG TAB PO PRN (17:19)
[2017-09-13 20:00] VITALS: BP 109/54; PULSE 51; RESP 20; TEMP 97.8; O2SAT 97
[2017-09-14] VITALS: BP 114/67; PULSE 48; RESP 18; TEMP 97.9; O2SAT 95
[2017-09-14] MEDS: ACETAMINOPHEN/HYDROcodone 325 MG/5 MG TAB PO PRN ×3 (02:35→10:52)
[2017-09-14] MEDS: metroNIDAZOLE 500 MG INJ 100 ML IV SCH ×2 (04:58→11:10)
[2017-09-14] MEDS: DOCUSATE SODIUM 100 MG CAP PO SCH (07:11)
[2017-09-14] MEDS: SODIUM CHLORIDE 0.9% FLUSH 10 ML FLUSH IV FLUSH SCH (07:12)
[2017-09-14 08:00] VITALS: BP 107/64; PULSE 65; RESP 18; TEMP 98.1; O2SAT 96
--- NOTE | 2017-09-14 09:14 | HHI.PR ---
Subjective Subjective Notes pt comfortable pos BM Objective Vitals/I&O Vital Signs Date Time Temp Pulse Resp B/P (MAP) Pulse Ox O2 Delivery O2 Flow Rate FiO2 09/14/17 08:00 98.1 65 18 107/64 (78) 96 09/12/17 18:34 21 Labs Last Impressions Abdomen/Pelvis CT 09/08/17626 Signed Impressions: Service Date/Time: Friday, September 08, 2017 08:14 - CONCLUSION: Abnormal soft tissue and fluid collection identified within the right lower quadrant with a central calcification concerning for an appendicolith within an inflammatory phlegmon/possible ruptured appendicitis. Findings were relayed to Dr. Lonny Jamison MD Radiology Last Impressions Abdomen/Pelvis CT 09/08/17626 Signed Impressions: Service Date/Time: Friday, September 08, 2017 08:14 - CONCLUSION: Abnormal soft tissue and fluid collection identified within the right lower quadrant with a central calcification concerning for an appendicolith within an inflammatory phlegmon/possible ruptured appendicitis. Findings were relayed to Dr. Lonny Jamison MD Lungs: Clear Abdomen: Post-op tenderness Extremities: Perfused Narrative Exam lourdes serous drainage Wound Wound : Wound Location: Abdomen Appearance: Clean & Dry A/P Assessment and Plan s/p lap appy for rupture appendicitis pt doing well will d/c home with Aaron Ferrari MD September 14, 2017 09:14
[2017-09-14] MEDS ORDERED: HYDR-3516 PO (09:20)
[2017-09-14] MEDS: SODIUM CHLOR 0.9% 1000 ML INJ 1,000 ML IV SCH (09:23)
[2017-09-14] MEDS: LEVOFLOXACIN 500 MG PREMIX INJ 100 ML IV SCH (10:05)
[2017-09-14 12:02] VITALS: RESP 20
== END 2017-09-14 13:07 | disposition home or self-care (01) | DRG 339 ==
LOC: NEPE 05:55 → NEDA 11:08 → N07B 12:18
PROVIDERS: ADMIT Surgery; ATTEND Surgery
PROC: 3E1M38Z Irrigation of Peritoneal Cavity using Irrigating Substance, Percutaneous Approach (ICD-10-PCS; 2017-09-09)
PROC: 0DTJ4ZZ Resection of Appendix, Percutaneous Endoscopic Approach (ICD-10-PCS; principal; 2017-09-09 11:04)
DX: K35.2 Acute appendicitis with generalized peritonitis (principal); K56.7 Ileus, unspecified; K38.1 Appendicular concretions; Z98.890 Other specified postprocedural states; F11.90 Opioid use, unspecified, uncomplicated
CPT/HCPCS: 74177; 80053; 81001; 83690; 84703; 85025; 88304; 96360; J0131; J1100; J1170; J1885; J1956; J2250; J2270; J2405; J2710; J3010; J7030; J7120; Q9963; Q9967